=== PATIENT | female | born 1975 | race Asian ===

== ENCOUNTER 2017-04-22 20:10 | Emergency (ER) | payer OTHER ==
[2017-04-22 20:36] LABS: BILIRUBIN,URINE NEGATIVE (NEGATIVE); COLOR,URINE YELLOW (YELLOW); GLUCOSE, URINE (UA) NEGATIVE (NEGATIVE); KETONES,URINE NEGATIVE (NEGATIVE); LEUKOCYTE ESTERASE ,URINE LARGE (NEGATIVE); NITRATE,URINE NEGATIVE (NEGATIVE); OCCULT BLOOD,URINE LARGE (NEGATIVE); PROTEIN,URINE 30 (NEGATIVE); UROBILINOGEN,URINE 0.2 mg/dL (0.2-1.0)
[2017-04-22 20:40] LABS: APPEARANCE,URINE CLOUDY (CLEAR)
[2017-04-22 20:48] LABS: HCG,QUAL RESULT NEGATIVE (NEGATIVE)
[2017-04-22 21:04] LABS: RBC,URINE >100 /HPF (0-1)
[2017-04-22 21:05] LABS: BACTERIA,URINE Few /HPF (None Seen); SQUAMOUS EPITHELIAL CELL,UR Rare /LPF (0-2); WBC,URINE 51-100 /HPF (0-1)
[2017-04-22] MEDS ORDERED: LIDOCAINE HCL-MPF 1% 2ML VIAL ONE (21:19)
[2017-04-22] MEDS ORDERED: CEFTRIAXONE SODIUM 1 GM ONE (21:19)
== END 2017-04-22 22:02 | disposition home or self-care (01) ==
LOC: EDH 20:10
DX: N12 Tubulo-interstitial nephritis, not specified as acute or chronic (principal); J45.909 Unspecified asthma, uncomplicated; I10 Essential (primary) hypertension; Z98.51 Tubal ligation status
CPT/HCPCS: 81001; 81025; 87088; 87186; J0696; J3490

== ENCOUNTER → 2017-05-31 | Outpatient (CLI) | payer OTHER ==
[2017-05-31 09:39] LABS: HEMOGLOBIN A1C 5.1 % (4.0-6.0)
== END | disposition home or self-care (01) ==
LOC: LAB 08:26
PROVIDERS: ATTEND Family Medicine
DX: R73.01 Impaired fasting glucose (principal)
CPT/HCPCS: 83036

== ENCOUNTER → 2017-08-05 | Outpatient (CLI) | payer OTHER ==
[2017-08-05 09:44] LABS: HEMATOCRIT 38.8 % (36-48); MEAN CORPUSCULAR HEMOGLOBIN 28.1 pg (27.0-33.0); MEAN CORPUSCULAR HGB CONC 33.6 g/dL (32.0-36.0); MEAN CORPUSCULAR VOLUME 83.8 fL (79-99); PLATELET COUNT (AUTO) 488 K/uL (130-400); RED BLOOD CELL COUNT(AUTO) 4.63 MIL/uL (4.00-5.50); RED CELL DISTRIBUTION WIDTH 14.6 % (11.0-15.5); WHITE BLOOD COUNT (AUTO) 7.4 K/uL (4.8-10.8)
[2017-08-05 09:46] LABS: HEMOGLOBIN A1C 5.6 % (4.0-6.0)
[2017-08-05 10:08] LABS: ALBUMIN 3.4 g/dL (3.5-5.0); BILIRUBIN,DIRECT 0.1 mg/dL (0.0-0.3); BILIRUBIN,TOTAL 0.4 mg/dL (0.2-1.0); CREATININE 0.8 mg/dL (0.5-1.5); POTASSIUM 3.7 mmol/L (3.5-5.1); THYROID STIMULATING HORMONE 2.82 uIU/mL (0.36-3.74); TOTAL PROTEIN, SERUM 8.2 g/dL (6.0-8.3)
== END ==
LOC: LAB 08:57
PROVIDERS: ATTEND Family Medicine
DX: Z00.01 Encounter for general adult medical examination with abnormal findings (principal); E55.9 Vitamin D deficiency, unspecified; E78.2 Mixed hyperlipidemia
CPT/HCPCS: 36415; 80048; 80061; 80076; 82306; 83036; 84439; 84443; 85027

== ENCOUNTER → 2018-01-20 | Outpatient (CLI) | payer OTHER ==
[2018-01-20 09:14] LABS: HEMATOCRIT 39.1 % (36-48); MEAN CORPUSCULAR HEMOGLOBIN 28.5 pg (27.0-33.0); MEAN CORPUSCULAR HGB CONC 33.8 g/dL (32.0-36.0); MEAN CORPUSCULAR VOLUME 84.5 fL (79-99); PLATELET COUNT (AUTO) 497 K/uL (130-400); RED BLOOD CELL COUNT(AUTO) 4.62 MIL/uL (4.00-5.50); RED CELL DISTRIBUTION WIDTH 14.8 % (11.0-15.5); WHITE BLOOD COUNT (AUTO) 7.2 K/uL (4.8-10.8)
[2018-01-20 09:40] LABS: HEMOGLOBIN A1C 5.4 % (4.0-6.0)
[2018-01-20 09:45] LABS: ALBUMIN 3.4 g/dL (3.5-5.0); BILIRUBIN,DIRECT 0.1 mg/dL (0.0-0.3); BILIRUBIN,TOTAL 0.4 mg/dL (0.2-1.0); CREATININE 0.9 mg/dL (0.5-1.5); POTASSIUM 4.1 mmol/L (3.5-5.1); THYROID STIMULATING HORMONE 2.37 uIU/mL (0.36-3.74); TOTAL PROTEIN, SERUM 7.9 g/dL (6.0-8.3)
[2018-01-21 07:27] LABS: VITAMIN D, 25-HYDROXY 45.9 ng/mL (30.0-100.0)
== END | disposition home or self-care (01) ==
LOC: LAB 08:29
PROVIDERS: ATTEND Family Medicine
DX: I10 Essential (primary) hypertension (principal); R73.09 Other abnormal glucose; E55.9 Vitamin D deficiency, unspecified
CPT/HCPCS: 36415; 80048; 80061; 80076; 82306; 83036; 84439; 84443; 85027

== ENCOUNTER → 2018-04-21 | Outpatient (CLI) | payer OTHER | END | disposition home or self-care (01) | LOC: RAH 09:53 | PROVIDERS: ATTEND Obstetrics & Gynecology | DX: Z12.31 Encounter for screening mammogram for malignant neoplasm of breast (principal) | CPT/HCPCS: 77067 ==

== ENCOUNTER → 2018-06-16 | Outpatient (CLI) | payer OTHER ==
[2018-06-16 09:53] LABS: THYROID STIMULATING HORMONE 3.04 uIU/mL (0.36-3.74)
== END | disposition home or self-care (01) ==
LOC: LAB 08:45
PROVIDERS: ATTEND Obstetrics & Gynecology
DX: G43.829 Menstrual migraine, not intractable, without status migrainosus (principal)
CPT/HCPCS: 36415; 82670; 83001; 83002; 84144; 84402; 84439; 84443; 84481

== ENCOUNTER → 2018-10-22 | Outpatient (CLI) | payer OTHER ==
[2018-10-22 09:42] LABS: HEMOGLOBIN A1C 5.3 % (4.0-6.0)
[2018-10-22 09:47] LABS: CHOLESTEROL 158 mg/dL (<200); HDL CHOLESTEROL 52 mg/dL (35-85); LDL DIRECT 94 mg/dL (0-99); TRIGLYCERIDES 42 mg/dL (30-200)
== END | disposition home or self-care (01) ==
LOC: LAB 08:47
PROVIDERS: ATTEND Family Medicine
DX: R73.01 Impaired fasting glucose (principal); E66.09 Other obesity due to excess calories
CPT/HCPCS: 36415; 80061; 83036

== ENCOUNTER 2019-02-23 08:55 | Emergency (ER) | payer OTHER ==
[2019-02-23 09:45] LABS: BASOPHILS % (AUTO) 1.5 % (0.0-5.0); EOSINOPHILS % (AUTO) 4.4 % (0.0-8.0); MEAN CORPUSCULAR HEMOGLOBIN 29.8 pg (27.0-33.0); MEAN CORPUSCULAR HGB CONC 34.2 g/dL (32.0-36.0); MEAN CORPUSCULAR VOLUME 87.3 fL (79-99); MONOCYTES % (AUTO) 5.3 % (3.0-13.0); NEUTROPHILS % (AUTO) 54.8 % (40.0-77.0); PLATELET COUNT (AUTO) 458 K/uL (130-400); RED BLOOD CELL COUNT(AUTO) 4.69 MIL/uL (4.00-5.50)
[2019-02-23 10:02] LABS: CREATININE 0.9 mg/dL (0.5-1.5); POTASSIUM 3.6 mmol/L (3.5-5.1)
[2019-02-23 10:03] LABS: INR 0.9 (0.85-1.15); PARTIAL THROMBOPLASTIN TIME 25.2 SEC (26.3-35.5); PROTHROMBIN TIME 9.3 SEC (9.6-11.6)
[2019-02-23 10:16] LABS: ALBUMIN 3.7 g/dL (3.5-5.0); BILIRUBIN,TOTAL 0.5 mg/dL (0.2-1.0); THYROID STIMULATING HORMONE 2.9 uIU/mL (0.36-3.74); TOTAL PROTEIN, SERUM 8.4 g/dL (6.0-8.3)
[2019-02-23 10:45] LABS: APPEARANCE,URINE Clear (CLEAR); BILIRUBIN,URINE Negative (NEGATIVE); COLOR,URINE Yellow (YELLOW); GLUCOSE, URINE (UA) Negative (NEGATIVE); KETONES,URINE Negative (NEGATIVE); LEUKOCYTE ESTERASE ,URINE Negative (NEGATIVE); NITRATE,URINE Negative (NEGATIVE); OCCULT BLOOD,URINE Moderate (NEGATIVE); PH,URINE 7.5 (5.0-8.0); PROTEIN,URINE Negative (NEGATIVE); UROBILINOGEN,URINE 0.2 mg/dL (0.2-1.0)
[2019-02-23 10:53] LABS: AMPHET/METH SCREEN,URINE NEGATIVE (NEGATIVE); BARBITURATE SCREEN, URINE NEGATIVE (NEGATIVE); BENZODIAZEPINES SCREEN,URINE NEGATIVE (NEGATIVE); CANNABINOID SCREEN,URINE NEGATIVE (NEGATIVE); COCAINE SCREEN,URINE NEGATIVE (NEGATIVE); OPIATE SCREEN,URINE NEGATIVE (NEGATIVE); PHENCYCLIDINE SCREEN,URINE NEGATIVE (NEGATIVE)
[2019-02-23 11:06] LABS: BACTERIA,URINE Rare /HPF (None Seen); SQUAMOUS EPITHELIAL CELL,UR Rare /HPF (0-2); WBC,URINE 0-1 /HPF (0-1)
[2019-02-23 11:38] LABS: HCG,QUAL RESULT NEGATIVE (NEGATIVE)
== END 2019-02-23 12:14 | disposition home or self-care (01) ==
LOC: EDH 08:55
DX: I10 Essential (primary) hypertension (principal); R00.2 Palpitations; R06.02 Shortness of breath; J45.909 Unspecified asthma, uncomplicated; Z98.51 Tubal ligation status
CPT/HCPCS: 36415; 71045; 80053; 80305; 81001; 81025; 82550; 84443; 84484; 85025; 85610; 85730; 93005

== ENCOUNTER → 2019-06-04 | Outpatient (CLI) | payer OTHER ==
[2019-06-04 08:24] LABS: BASOPHILS % (AUTO) 0.5 % (0.0-5.0); HEMATOCRIT 39.8 % (36-48); LYMPHOCYTES % (AUTO) 33.3 % (21.0-51.0); MEAN CORPUSCULAR HGB CONC 32.4 g/dL (32.0-36.0); MEAN CORPUSCULAR VOLUME 86.3 fL (79-99); MONOCYTES % (AUTO) 6.9 % (3.0-13.0); NEUTROPHILS % (AUTO) 52.9 % (40.0-77.0); PLATELET COUNT (AUTO) 445 K/uL (130-400); RED BLOOD CELL COUNT(AUTO) 4.61 MIL/uL (4.00-5.50); RED CELL DISTRIBUTION WIDTH 13.3 % (11.0-15.5); WHITE BLOOD COUNT (AUTO) 7.4 K/uL (4.8-10.8)
[2019-06-04 08:46] LABS: ALBUMIN 3.4 g/dL (3.5-5.0); BILIRUBIN,DIRECT 0.1 mg/dL (0.0-0.3); BILIRUBIN,TOTAL 0.4 mg/dL (0.2-1.0); CREATININE 0.8 mg/dL (0.5-1.5); THYROID STIMULATING HORMONE 2.7 uIU/mL (0.36-3.74); TOTAL PROTEIN, SERUM 7.8 g/dL (6.0-8.3)
[2019-06-04 09:20] LABS: HEMOGLOBIN A1C 5.2 % (4.0-6.0)
== END | disposition home or self-care (01) ==
LOC: LAB 07:50
PROVIDERS: ATTEND Internal Medicine Cardiovascular Disease
DX: R00.2 Palpitations (principal); R06.02 Shortness of breath; E78.2 Mixed hyperlipidemia; I10 Essential (primary) hypertension
CPT/HCPCS: 36415; 80048; 80061; 80076; 83036; 84439; 84443; 85025

== ENCOUNTER 2019-09-15 07:22 | Emergency (ER) | payer OTHER ==
[2019-09-15] MEDS ORDERED: KETOROLAC TROMETHAMINE 60 MG/2 ML VIAL ONE (08:07)
== END 2019-09-15 08:19 | disposition home or self-care (01) ==
LOC: EDH 07:22
DX: S93.402A Sprain of unspecified ligament of left ankle, initial encounter (principal); S80.01XA Contusion of right knee, initial encounter; J45.909 Unspecified asthma, uncomplicated; I10 Essential (primary) hypertension; Z98.51 Tubal ligation status; W18.39XA Other fall on same level, initial encounter; Y93.01 Activity, walking, marching and hiking; Y92.89 Other specified places as the place of occurrence of the external cause; Y99.8 Other external cause status
CPT/HCPCS: 73562; 73610; 99284; J1885

== ENCOUNTER → 2019-10-29 | Outpatient (CLI) | payer OTHER ==
[2019-10-29 09:40] LABS: BASOPHILS % (AUTO) 0.7 % (0.0-5.0); EOSINOPHILS % (AUTO) 2.9 % (0.0-8.0); HEMATOCRIT 39.5 % (36-48); MEAN CORPUSCULAR HEMOGLOBIN 28.6 pg (27.0-33.0); MEAN CORPUSCULAR HGB CONC 32.9 g/dL (32.0-36.0); MEAN CORPUSCULAR VOLUME 86.8 fL (79-99); MONOCYTES % (AUTO) 6.2 % (3.0-13.0); NEUTROPHILS % (AUTO) 64.7 % (40.0-77.0); PLATELET COUNT (AUTO) 496 K/uL (130-400); RED BLOOD CELL COUNT(AUTO) 4.55 MIL/uL (4.00-5.50); RED CELL DISTRIBUTION WIDTH 13.3 % (11.0-15.5); WHITE BLOOD COUNT (AUTO) 8.7 K/uL (4.8-10.8)
[2019-10-29 09:48] LABS: HEMOGLOBIN A1C 5.8 % (4.0-6.0)
[2019-10-29 10:03] LABS: ALBUMIN 3.2 g/dL (3.5-5.0); BILIRUBIN,TOTAL 0.5 mg/dL (0.2-1.0); CREATININE 0.8 mg/dL (0.5-1.5); THYROID STIMULATING HORMONE 2.23 uIU/mL (0.36-3.74); TOTAL PROTEIN, SERUM 7.6 g/dL (6.0-8.3)
== END | disposition home or self-care (01) ==
LOC: LAB 05:26
PROVIDERS: ATTEND Internal Medicine
DX: I10 Essential (primary) hypertension (principal)
CPT/HCPCS: 36415; 80053; 80061; 82672; 83036; 84443; 85025

== ENCOUNTER → 2020-05-12 | Outpatient (CLI) | payer OTHER ==
[2020-05-12 10:31] LABS: BASOPHILS % (AUTO) 0.7 % (0.0-5.0); EOSINOPHILS % (AUTO) 2.7 % (0.0-8.0); HEMATOCRIT 39.6 % (36-48); MEAN CORPUSCULAR HEMOGLOBIN 27.5 pg (27.0-33.0); MEAN CORPUSCULAR HGB CONC 32.3 g/dL (32.0-36.0); MONOCYTES % (AUTO) 5.7 % (3.0-13.0); NEUTROPHILS % (AUTO) 54.4 % (40.0-77.0); PLATELET COUNT (AUTO) 461 K/uL (130-400); RED BLOOD CELL COUNT(AUTO) 4.66 MIL/uL (4.00-5.50); RED CELL DISTRIBUTION WIDTH 14.2 % (11.0-15.5); WHITE BLOOD COUNT (AUTO) 8.7 K/uL (4.8-10.8)
[2020-05-12 10:46] LABS: HEMOGLOBIN A1C 5.5 % (4.0-6.0)
[2020-05-12 10:55] LABS: ALBUMIN 3.5 g/dL (3.5-5.0); BILIRUBIN,DIRECT 0.2 mg/dL (0.0-0.3); BILIRUBIN,TOTAL 0.5 mg/dL (0.2-1.0); CREATININE 0.8 mg/dL (0.5-1.5); POTASSIUM 3.9 mmol/L (3.5-5.1); THYROID STIMULATING HORMONE 1.86 uIU/mL (0.36-3.74)
== END | disposition home or self-care (01) ==
LOC: LAB 08:43
PROVIDERS: ATTEND Internal Medicine
DX: I10 Essential (primary) hypertension (principal); E78.2 Mixed hyperlipidemia; R06.02 Shortness of breath; R73.09 Other abnormal glucose
CPT/HCPCS: 36415; 80053; 80061; 80076; 82306; 83036; 84443; 85025

== ENCOUNTER → 2020-06-08 | Outpatient (CLI) | payer OTHER | END | disposition home or self-care (01) | LOC: RAH 12:49 | PROVIDERS: ATTEND Internal Medicine | DX: Z12.31 Encounter for screening mammogram for malignant neoplasm of breast (principal) | CPT/HCPCS: 77067 ==

== ENCOUNTER → 2020-07-04 | Outpatient (CLI) | payer OTHER ==
[2020-07-04 14:24] LABS: THYROID STIMULATING HORMONE 1.73 uIU/mL (0.36-3.74)
== END | disposition home or self-care (01) ==
LOC: LAB 13:16
PROVIDERS: ATTEND Obstetrics & Gynecology
DX: N91.1 Secondary amenorrhea (principal)
CPT/HCPCS: 36415; 82670; 83001; 84144; 84402; 84403; 84443; 84702

== ENCOUNTER → 2020-10-20 | Outpatient (CLI) | payer OTHER ==
[2020-10-20 08:52] LABS: BASOPHILS % (AUTO) 0.4 % (0.0-5.0); HEMATOCRIT 37.1 % (36-48); LYMPHOCYTES % (AUTO) 29.4 % (21.0-51.0); MEAN CORPUSCULAR HEMOGLOBIN 25.9 pg (27.0-33.0); MEAN CORPUSCULAR VOLUME 83.6 fL (79-99); MONOCYTES % (AUTO) 5.9 % (3.0-13.0); PLATELET COUNT (AUTO) 448 K/uL (130-400); RED BLOOD CELL COUNT(AUTO) 4.44 MIL/uL (4.00-5.50); RED CELL DISTRIBUTION WIDTH 13.9 % (11.0-15.5); WHITE BLOOD COUNT (AUTO) 8.9 K/uL (4.8-10.8)
[2020-10-20 09:07] LABS: ALBUMIN 3.3 g/dL (3.5-5.0); BILIRUBIN,DIRECT 0.1 mg/dL (0.0-0.3); BILIRUBIN,TOTAL 0.6 mg/dL (0.2-1.0); CREATININE 0.8 mg/dL (0.5-1.5); POTASSIUM 4.5 mmol/L (3.5-5.1); TOTAL PROTEIN, SERUM 7.6 g/dL (6.0-8.3)
== END | disposition home or self-care (01) ==
LOC: LAB 08:30
PROVIDERS: ATTEND Internal Medicine Cardiovascular Disease
DX: I11.9 Hypertensive heart disease without heart failure (principal); I25.9 Chronic ischemic heart disease, unspecified; E78.2 Mixed hyperlipidemia; R06.02 Shortness of breath
CPT/HCPCS: 36415; 80048; 80061; 80076; 85025

== ENCOUNTER 2021-04-06 18:23 | Observation (INO) | payer OTHER ==
[~2021-04-06] VITALS: Ht 142.2 cm; Wt 83.9 kg
[2021-04-06] MEDS ORDERED: TRANEXAMIC ACID 1000MG/10ML IV ONE (19:00)
[2021-04-06] MEDS ORDERED: 0.9%NACL 1000ML 1,000 ML IV SCH (19:00)
[2021-04-06 19:23] LABS: BASOPHILS % (AUTO) 0.6 % (0.0-5.0); EOSINOPHILS % (AUTO) 3.5 % (0.0-8.0); HEMATOCRIT 26.6 % (36-48); LYMPHOCYTES % (AUTO) 43.5 % (21.0-51.0); MEAN CORPUSCULAR HEMOGLOBIN 21.2 pg (27.0-33.0); MEAN CORPUSCULAR HGB CONC 29.3 g/dL (32.0-36.0); MEAN CORPUSCULAR VOLUME 72.3 fL (79-99); MONOCYTES % (AUTO) 6.1 % (3.0-13.0); NEUTROPHILS % (AUTO) 45.9 % (40.0-77.0); PLATELET COUNT (AUTO) 510 K/uL (130-400); RED BLOOD CELL COUNT(AUTO) 3.68 MIL/uL (4.00-5.50); RED CELL DISTRIBUTION WIDTH 18.4 % (11.0-15.5); WHITE BLOOD COUNT (AUTO) 9.6 K/uL (4.8-10.8)
[2021-04-06 19:41] LABS: ALBUMIN 3.5 g/dL (3.5-5.0); BILIRUBIN,TOTAL 0.2 mg/dL (0.2-1.0); CREATININE 0.9 mg/dL (0.5-1.5); POTASSIUM 3.4 mmol/L (3.5-5.1); TOTAL PROTEIN, SERUM 7.7 g/dL (6.0-8.3)
[2021-04-06 20:25] VITALS: BP 112/71
[2021-04-06] MEDS ORDERED: TRANEXAMIC ACID 1,000 MG in 0.9%NACL 100ML 100 ML IV ONE (20:30)
[2021-04-06] MEDS ORDERED: METO-391 PO (20:46)
[2021-04-06] MEDS ORDERED: LOSA25TA41 PO (20:46)
[2021-04-06] MEDS ORDERED: METO50TA9 PO (21:09)
[2021-04-06] MEDS ORDERED: METOPROLOL SUCCINATE 50 MG TAB.SR.24H PO SCH (21:30)
[2021-04-06] MEDS ORDERED: DIPHENHYDRAMINE HCL 25 MG CAPSULE PO SCH (22:30)
[2021-04-06] MEDS ORDERED: ACETAMINOPHEN 500 MG TABLET PO ONE (22:30)
[2021-04-06] MEDS ORDERED: ACETAMINOPHEN 325 MG TAB PO SCH (22:30)
[2021-04-06 23:14] VITALS: BP 102/58
[2021-04-06 23:33] VITALS: BP 108/73
[2021-04-06 23:43] VITALS: BP 115/67
[2021-04-07] VITALS (23 sets, daily range): BP systolic 110–149; BP diastolic 65–92
[2021-04-07 06:49] LABS: HEMATOCRIT 31.1 % (36-48)
[2021-04-07] MEDS ORDERED: GLYCOPYRROLATE 1 MG/5 ML SYRINGE ONE ×2 (10:40→12:47)
[2021-04-07] MEDS ORDERED: LIDOCAINE PF 100MG/5ML (2%) SYRINGE 5ML ONE (10:40)
[2021-04-07] MEDS ORDERED: DEXAMETHASONE SOD PHOSPHATE 10MG/ML 1ML VIAL ONE (10:40)
[2021-04-07] MEDS ORDERED: SUCCINYLCHOLINE CHLORIDE 20 MG/ML 10 ML VIAL ONE (10:40)
[2021-04-07] MEDS ORDERED: ONDANSETRON 4MG INJ ONE (10:40)
[2021-04-07] MEDS ORDERED: SUCCINYLCHOLINE 200MG/10ML SYR ONE (10:40)
[2021-04-07] MEDS ORDERED: PROPOFOL 10 MG/ML 20ML VIAL IV ONE (10:41)
[2021-04-07] MEDS ORDERED: MIDAZOLAM HCL 1 MG/ML 2ML VIAL ONE ×2 (10:41→12:13)
[2021-04-07] MEDS ORDERED: NEOSTIGMINE 5MG/5ML SYR IV ONE ×2 (10:41→12:47)
[2021-04-07] MEDS ORDERED: FENTANYL CITRATE PF 50 MCG/1 ML 2ML VIAL ONE (10:41)
[2021-04-07] MEDS ORDERED: ROCURONIUM 10MG/1ML SYR 10 MG/ML ML ONE (10:41)
[2021-04-07] MEDS ORDERED: FENTANYL CITRATE PF 50 MCG/1 ML 5ML AMP IV ONE (12:34)
[2021-04-07] MEDS ORDERED: CEFAZOLIN SODIUM 1 GM VIAL ONE (12:36)
[2021-04-07] MEDS ORDERED: CALDOLOR 800MG+NS 250ML 250 ML IV ONE ×2 (13:11→13:15)
[2021-04-07] MEDS ORDERED: IBUPROFEN 800 MG TAB PO PRN (17:00)
[2021-04-07] MEDS ORDERED: DOCU-116 PO (17:56)
[2021-04-07] MEDS ORDERED: IBUP-1673 PO (17:57)
[2021-04-07] MEDS ORDERED: METOPROLOL SUCCINATE 50 MG TAB.SR.24H PO SCH (21:00)
== END 2021-04-07 19:00 | disposition home or self-care (01) ==
LOC: WSH 18:23
PROVIDERS: ADMIT Obstetrics & Gynecology; ATTEND Obstetrics & Gynecology
DX: N92.1 Excessive and frequent menstruation with irregular cycle (principal); Z20.822 Contact with and (suspected) exposure to COVID-19; D50.0 Iron deficiency anemia secondary to blood loss (chronic); N84.0 Polyp of corpus uteri; I10 Essential (primary) hypertension; E66.9 Obesity, unspecified; Z79.899 Other long term (current) drug therapy
CPT/HCPCS: 36415 ×2; 36430 ×2; 58563; 76856; 80053; 84703; 85014; 85018; 85025; 86850; 86900; 86901; 86923; 87635; 96365; A4222; A4223; A4351; A4355; C1769; G0378 ×22; G0379; J0330 ×2; J0690; J1100; J1741 ×2; J2001; J2250; J2405; J2704; J2710 ×2; J3010 ×2; J3490 ×3; J7030; P9016 ×2; Q0163

== ENCOUNTER → 2021-10-30 | Outpatient (CLI) | payer OTHER ==
[~2021-10-30] MED LIST: DOCU-116 PO; IBUP-1673 PO; LOSA25TA41 PO; METO50TA9 PO
[2021-10-30 10:49] LABS: BASOPHILS % (AUTO) 0.5 % (0.0-5.0); EOSINOPHILS % (AUTO) 2.9 % (0.0-8.0); HEMATOCRIT 44.8 % (36-48); LYMPHOCYTES % (AUTO) 32.7 % (21.0-51.0); MEAN CORPUSCULAR HEMOGLOBIN 27.6 pg (27.0-33.0); MEAN CORPUSCULAR VOLUME 83.4 fL (79-99); MONOCYTES % (AUTO) 5.5 % (3.0-13.0); NEUTROPHILS % (AUTO) 57.8 % (40.0-77.0); PLATELET COUNT (AUTO) 410 K/uL (130-400); RED BLOOD CELL COUNT(AUTO) 5.37 MIL/uL (4.00-5.50); RED CELL DISTRIBUTION WIDTH 15.5 % (11.0-15.5); WHITE BLOOD COUNT (AUTO) 9.8 K/uL (4.8-10.8)
[2021-10-30 11:10] LABS: ALBUMIN 3.6 g/dL (3.5-5.0); BILIRUBIN,DIRECT 0.1 mg/dL (0.0-0.3); BILIRUBIN,TOTAL 0.5 mg/dL (0.2-1.0); CREATININE 0.8 mg/dL (0.5-1.5); POTASSIUM 4.7 mmol/L (3.5-5.1); THYROID STIMULATING HORMONE 3.28 uIU/mL (0.36-3.74); TOTAL PROTEIN, SERUM 7.9 g/dL (6.0-8.3)
[2021-10-30 11:28] LABS: HEMOGLOBIN A1C 5.5 % (4.0-6.0)
== END | disposition home or self-care (01) ==
LOC: LAB 09:12
PROVIDERS: ATTEND Internal Medicine Cardiovascular Disease
DX: I25.9 Chronic ischemic heart disease, unspecified (principal); I10 Essential (primary) hypertension; R06.02 Shortness of breath; R73.09 Other abnormal glucose
CPT/HCPCS: 36415; 80048; 80061; 80076; 83036; 84443; 85025

== ENCOUNTER → 2022-05-04 | Outpatient (CLI) | payer OTHER ==
[2022-05-04 09:15] LABS: HEMATOCRIT 41.8 % (36-48); MEAN CORPUSCULAR HEMOGLOBIN 30.3 pg (27.0-33.0); MEAN CORPUSCULAR HGB CONC 33.7 g/dL (32.0-36.0); MEAN CORPUSCULAR VOLUME 89.9 fL (79-99); RED BLOOD CELL COUNT(AUTO) 4.65 MIL/uL (4.00-5.50); RED CELL DISTRIBUTION WIDTH 12.6 % (11.0-15.5); WHITE BLOOD COUNT (AUTO) 11.5 K/uL (4.8-10.8)
[2022-05-04 09:26] LABS: HEMOGLOBIN A1C 5.6 % (4.0-6.0)
[2022-05-04 09:39] LABS: ALBUMIN 3.5 g/dL (3.5-5.0); BILIRUBIN,DIRECT 0.1 mg/dL (0.0-0.3); CREATININE 0.8 mg/dL (0.5-1.5); THYROID STIMULATING HORMONE 1.59 uIU/mL (0.36-3.74); TOTAL PROTEIN, SERUM 7.5 g/dL (6.0-8.3)
== END | disposition home or self-care (01) ==
LOC: LAB 08:46
PROVIDERS: ATTEND Internal Medicine Cardiovascular Disease
DX: I10 Essential (primary) hypertension (principal); I25.9 Chronic ischemic heart disease, unspecified; R06.02 Shortness of breath; R73.09 Other abnormal glucose
CPT/HCPCS: 36415; 80048; 80061; 80076; 83036; 84443; 85027

== ENCOUNTER → 2022-05-31 | Outpatient (CLI) | payer OTHER | END | disposition home or self-care (01) | LOC: RAH 13:16 | PROVIDERS: ATTEND Obstetrics & Gynecology | DX: Z12.31 Encounter for screening mammogram for malignant neoplasm of breast (principal) | CPT/HCPCS: 77067 ==

== ENCOUNTER → 2022-10-26 | Outpatient (CLI) | payer OTHER ==
[2022-10-26 09:29] LABS: BASOPHILS % (AUTO) 0.8 % (0.0-5.0); EOSINOPHILS % (AUTO) 4.4 % (0.0-8.0); LYMPHOCYTES % (AUTO) 32.9 % (21.0-51.0); MEAN CORPUSCULAR HEMOGLOBIN 29.4 pg (27.0-33.0); MEAN CORPUSCULAR HGB CONC 32.9 g/dL (32.0-36.0); MEAN CORPUSCULAR VOLUME 89.5 fL (79-99); MONOCYTES % (AUTO) 6.6 % (3.0-13.0); PLATELET COUNT (AUTO) 417 K/uL (130-400); RED BLOOD CELL COUNT(AUTO) 5.03 MIL/uL (4.00-5.50); RED CELL DISTRIBUTION WIDTH 12.4 % (11.0-15.5); WHITE BLOOD COUNT (AUTO) 7.3 K/uL (4.8-10.8)
[2022-10-26 09:47] LABS: HEMOGLOBIN A1C 5.5 % (4.0-6.0)
[2022-10-26 10:01] LABS: ALBUMIN 3.5 g/dL (3.5-5.0); CREATININE 0.9 mg/dL (0.5-1.5); THYROID STIMULATING HORMONE 2.41 uIU/mL (0.36-3.74)
== END | disposition home or self-care (01) ==
LOC: LAB 08:25
PROVIDERS: ATTEND Internal Medicine Cardiovascular Disease
DX: Z00.00 Encounter for general adult medical examination without abnormal findings (principal); E66.01 Morbid (severe) obesity due to excess calories; I10 Essential (primary) hypertension
CPT/HCPCS: 36415; 80053; 80061; 82043; 82306; 83036; 84443; 85025

== ENCOUNTER → 2023-04-25 | Outpatient (CLI) | payer OTHER ==
[2023-04-25 09:28] LABS: BASOPHILS # (AUTO) 0.06 K/uL (0.00-0.20); BASOPHILS % (AUTO) 0.7 % (0.0-5.0); EOSINOPHILS # (AUTO) 0.28 K/uL (0.00-0.70); EOSINOPHILS % (AUTO) 3.4 % (0.0-8.0); HEMATOCRIT 46.6 % (36-48); IMMATURE GRANULOCYTE ABSOLUTE 0.04 K/uL (0-1); LYMPHOCYTES # (AUTO) 3.1 K/uL (1.0-4.8); LYMPHOCYTES % (AUTO) 37.6 % (21.0-51.0); MEAN CORPUSCULAR HEMOGLOBIN 30.6 pg (27.0-33.0); MEAN CORPUSCULAR HGB CONC 33.7 g/dL (32.0-36.0); MEAN CORPUSCULAR VOLUME 90.8 fL (79-99); MONOCYTES # (AUTO) 0.5 K/uL (0.1-1.0); NEUTROPHILS # (AUTO) 4.3 K/uL (1.8-7.7); NEUTROPHILS % (AUTO) 51.8 % (40.0-77.0); PLATELET COUNT (AUTO) 427 K/uL (130-400); RED BLOOD CELL COUNT(AUTO) 5.13 MIL/uL (4.00-5.50); RED CELL DISTRIBUTION WIDTH 13.5 % (11.0-15.5); WHITE BLOOD COUNT (AUTO) 8.2 K/uL (4.8-10.8)
[2023-04-25 09:42] LABS: HEMOGLOBIN A1C 5.4 % (4.0-6.0)
[2023-04-25 09:50] LABS: ALBUMIN 3.8 g/dL (3.5-5.0); BILIRUBIN,DIRECT 0.2 mg/dL (0.0-0.3); BILIRUBIN,TOTAL 0.9 mg/dL (0.2-1.0); POTASSIUM 4.4 mmol/L (3.5-5.1); THYROID STIMULATING HORMONE 2.82 uIU/mL (0.36-3.74); TOTAL PROTEIN, SERUM 8.8 g/dL (6.0-8.3)
[2023-04-25 11:08] LABS: ERYTHROCYTE SEDIMENTATION RATE 30 MM/HR (0-30)
[2023-04-26 07:00] LABS: RHEUMATOID ARTHRITIS FACTOR <10.0 IU/mL (<14.0)
== END | disposition home or self-care (01) ==
LOC: LAB 08:42
PROVIDERS: ATTEND Internal Medicine Cardiovascular Disease
DX: I10 Essential (primary) hypertension (principal); I25.9 Chronic ischemic heart disease, unspecified; R06.02 Shortness of breath; R73.09 Other abnormal glucose; M06.9 Rheumatoid arthritis, unspecified
CPT/HCPCS: 36415; 80048; 80061; 80076; 83036; 84443; 85025; 85651; 86038; 86200; 86215; 86235; 86431

== ENCOUNTER → 2023-05-08 | Outpatient (CLI) | payer OTHER ==
[2023-05-08 10:05] LABS: URIC ACID 5.9 mg/dL (2.6-7.2)
== END | disposition home or self-care (01) ==
LOC: LAB 08:48
PROVIDERS: ATTEND Internal Medicine
DX: M79.10 Myalgia, unspecified site (principal); R53.83 Other fatigue; D75.839 Thrombocytosis, unspecified; M54.6 Pain in thoracic spine
CPT/HCPCS: 36415; 72082; 82306; 82550; 82607; 82746; 83921; 84550

== ENCOUNTER → 2023-10-09 | Outpatient (CLI) | payer OTHER ==
[~2023-10-09] VITALS: Ht 142.2 cm; Wt 85.3 kg
[~2023-10-09] MED LIST changes: +LORA10TA7 PO; +MONT-46 PO
== END | disposition home or self-care (01) ==
LOC: DAH 10:00 → EDSTATUS 10-15 08:50
PROVIDERS: ATTEND Internal Medicine Gastroenterology
DX: Z01.812 Encounter for preprocedural laboratory examination (principal); Z12.11 Encounter for screening for malignant neoplasm of colon; R12 Heartburn
CPT/HCPCS: 81025

== ENCOUNTER 2023-10-23 06:00 | Day surgery (SDC) | payer OTHER ==
[~2023-10-23] VITALS: Ht 142.2 cm; Wt 84.4 kg
[2023-10-23] VITALS (10 sets, daily range): BP systolic 108–125; BP diastolic 76–83; PULSE 60–86; RESP 15–18
[~2023-10-23 06:00] MED LIST changes: -DOCU-116 PO; -IBUP-1673 PO; -LOSA25TA41 PO; +LOSA50TA64 PO
[2023-10-23] MEDS: 0.9%NACL 1000ML 1,000 ML IV ONE (06:49)
[2023-10-23] MEDS ORDERED: PROPOFOL 1000 MG/100 ML 100 ML IV ONE (08:34)
== END 2023-10-23 10:00 | disposition home or self-care (01) ==
LOC: DAH 06:00
PROVIDERS: ATTEND Internal Medicine Gastroenterology
DX: Z12.11 Encounter for screening for malignant neoplasm of colon (principal); D12.2 Benign neoplasm of ascending colon; K64.4 Residual hemorrhoidal skin tags; K29.50 Unspecified chronic gastritis without bleeding; K21.00 Gastro-esophageal reflux disease with esophagitis, without bleeding; K44.9 Diaphragmatic hernia without obstruction or gangrene; R12 Heartburn; I10 Essential (primary) hypertension; J45.909 Unspecified asthma, uncomplicated; E66.9 Obesity, unspecified; Z68.41 Body mass index [BMI] 40.0-44.9, adult; Z82.5 Family history of asthma and other chronic lower respiratory diseases; Z79.899 Other long term (current) drug therapy; Z98.890 Other specified postprocedural states
CPT/HCPCS: 45380; 43239; J7030; J2704; A4620; A4215 ×2; A4223; A4222; A4221; A4663; A4606

== ENCOUNTER → 2024-05-07 | Outpatient (CLI) | payer OTHER ==
[2024-05-07 09:16] LABS: BASOPHILS # (AUTO) 0.06 K/uL (0.00-0.20); BASOPHILS % (AUTO) 0.7 % (0.0-5.0); EOSINOPHILS # (AUTO) 0.38 K/uL (0.00-0.70); EOSINOPHILS % (AUTO) 4.5 % (0.0-8.0); IMMATURE GRANULOCYTE ABSOLUTE 0.02 K/uL (0-1); LYMPHOCYTES # (AUTO) 2.7 K/uL (1.0-4.8); LYMPHOCYTES % (AUTO) 32.2 % (21.0-51.0); MEAN CORPUSCULAR HEMOGLOBIN 30.3 pg (27.0-33.0); MEAN CORPUSCULAR HGB CONC 33.8 g/dL (32.0-36.0); MEAN CORPUSCULAR VOLUME 89.7 fL (79-99); MONOCYTES # (AUTO) 0.4 K/uL (0.1-1.0); NEUTROPHILS # (AUTO) 4.8 K/uL (1.8-7.7); NEUTROPHILS % (AUTO) 57.4 % (40.0-77.0); PLATELET COUNT (AUTO) 404 K/uL (130-400); RED BLOOD CELL COUNT(AUTO) 4.46 MIL/uL (4.00-5.50); WHITE BLOOD COUNT (AUTO) 8.4 K/uL (4.8-10.8)
[2024-05-07 09:38] LABS: ALBUMIN 3.4 g/dL (3.5-5.0); BILIRUBIN,TOTAL 0.5 mg/dL (0.2-1.0); POTASSIUM 4.1 mmol/L (3.5-5.1); THYROID STIMULATING HORMONE 2.2 uIU/mL (0.36-3.74); TOTAL PROTEIN, SERUM 7.7 g/dL (6.0-8.3)
[2024-05-07 10:12] LABS: HEMOGLOBIN A1C 5.1 % (4.0-6.0)
== END | disposition home or self-care (01) ==
LOC: LAB 08:30
PROVIDERS: ATTEND Internal Medicine
DX: E78.2 Mixed hyperlipidemia (principal); I10 Essential (primary) hypertension; R73.01 Impaired fasting glucose
CPT/HCPCS: 36415; 80053; 80061; 82043; 82570; 83036; 84443; 85025